=== PATIENT | male | born 1980 | race Caucasian/White ===

== ENCOUNTER → 2016-10-09 | Outpatient (CLI) | payer OTHER ==
[~2016-10-09] MED LIST: AMLO-110 PO; ASPI81TA28 PO; ATOR-24 PO; CYM/30 PO; CYM/60 PO; DICL1GEL28; DOCU-94 PO; FLX10; GABA-113 PO; GABA1CAP5 PO; METH500T37 PO; METO25TA3 PO; NTRGSL.4; RANO500T PO; SILO8CAP PO; SPIR25TA PO; TPRSR/50 PO
--- NOTE | 2016-10-09 16:01 | DIAGNOSTIC IMAGING REPORT ---
CERVICAL SPINE MRI HISTORY: Pain. Neuropathy. M54.12 Cervical radiculopathy at [id number] active C8 radiculopath TECHNIQUE: Multiplanar multisequence MRI of the cervical spine was performed without the use of contrast. COMPARISON STUDY: None. FINDINGS: Unremarkable signal characteristics of the vertebral bodies. Minimal disc desiccation. C2-C3: No significant central canal or neural foraminal narrowing. C3-C4: No significant central canal or neural foraminal narrowing. C4-C5: No significant central canal or neural foraminal narrowing. C5-C6: Mild right central bulging disc with minimal impact anterior aspect cervical cord. C6-C7: No significant central canal or neural foraminal narrowing. C7-T1: No significant central canal or neural foraminal narrowing. IMPRESSION: 1. Minimal broad-based right central bulging disc C5-C6. 2. Otherwise negative MRI cervical spine. Electronically signed by: Felice Em M.D. 10/09/2016 4:00 PM Dictated Date/Time: 10/09/2016 3:57 PM
== END | disposition home or self-care (01) ==
LOC: C.MRIBC 14:51
PROVIDERS: ATTEND Psychiatry & Neurology Neurology
DX: M54.12 Radiculopathy, cervical region (principal)